=== PATIENT | female | born 1990 | race Caucasian/White ===

== ENCOUNTER 2019-06-21 06:03 | Inpatient (IN) | payer BC ==
[~2019-06-21 06:03] MED LIST: Citric Acid/Sodium Citrate Solution 30 ML Cup PO ONE; Clindamycin Phosphate 900 MG in Sodium Chloride 0.9% 100 ML IV ONE; Gentamicin 500 MG in Sodium Chloride 0.9% 100 ML IV ONE; Lactated Ringers 1,000 ML IV SCH; Oxytocin/Normal Saline 30 UNIT/500 ML BAG IV SCH; Sodium Chloride 0.9% 10 ML Syringe FLUSH PRN; Tranexamic Acid 1,000 MG in Sodium Chloride 0.9% 100 ML IV PRN
[2019-06-21] MEDS: Lactated Ringers 1,000 ML IV SCH ×4 (06:30→20:36)
[2019-06-21] MEDS ORDERED: Oxytocin/Normal Saline 60 UNIT/1,000 ML BAG ONE (06:59)
[2019-06-21] MEDS ORDERED: Carboprost Tromethamine 250 MCG/1 ML Amp IM PRN (10:01)
[2019-06-21] MEDS ORDERED: Naloxone 2 MG/2 ML Syringe IVPUSH PRN (10:01)
[2019-06-21] MEDS ORDERED: Acetaminophen 325 MG Tab PO PRN (10:01)
[2019-06-21] MEDS ORDERED: diphenhydrAMINE 50 MG/ML SDV IVPUSH PRN (10:01)
[2019-06-21] MEDS ORDERED: Tranexamic Acid 1,000 MG in Sodium Chloride 0.9% 100 ML IV PRN (10:01)
[2019-06-21] MEDS ORDERED: Misoprostol 400 MCG (4 X 100 MCG TAB) RECTAL PRN (10:01)
[2019-06-21] MEDS ORDERED: Ondansetron 4 MG/2 ML SDV IVPUSH PRN (10:01)
[2019-06-21] MEDS ORDERED: Methylergonovine 0.2 MG/1 ML Amp IM PRN (10:01)
[2019-06-21] MEDS ORDERED: ePHEDrine 50 MG/ML SDV IVPUSH PRN (10:01)
[2019-06-21] MEDS ORDERED: Acetaminophen/oxyCODONE 325-5 MG Tab PO PRN (10:01)
[2019-06-21] MEDS ORDERED: Ketorolac 30 MG/ML SDV IVPUSH SCH (10:30)
--- NOTE | 2019-06-21 11:08 | OR ---
DATE: 06/21/2019 PROCEDURE PERFORMED: Repeat low transverse section. SURGEON: Merissa Champagne MD PLASTERER MAINTENANCE: Ynes Child MD PRE PROCEDURE DIAGNOSES: 1. 39 and 0/7 weeks intrauterine based on 14 weeks ultrasound. 2. 4, para 2-0-1-2. 3. Hypothyroidism of . 4. History of gestational diabetes in past 2 pregnancies, but not this . 5. History of delivery of macrosomic infant. 6. Anemia of . 7. Blood type A positive, rubella immune, group B Strep positive, resistant to clindamycin. POSTPROCEDURE DIAGNOSES: 1. 39 and 0/7 weeks intrauterine based on 14 weeks ultrasound. 2. 4, para 2-0-1-2. 3. Hypothyroidism of . 4. History of gestational diabetes in past 2 pregnancies, but not this . 5. History of delivery of macrosomic infant. 6. Anemia of . 7. Blood type A positive, rubella immune, group B Strep positive, resistant to clindamycin. 8. Thin lower uterine segment. 9. Delivery of viable male . FINDINGS: As below. BRIEF HISTORY: A 29-year-old female with the above-listed diagnoses, brought into the hospital today for elective repeat section at term. Please see admission history and physical for full details. There were no new problems or concerns noted on day of surgery. Consent discussed with the patient and her at her preoperative appointment as well as upon arrival today. The indications, risks, benefits, and alternatives of repeat low transverse section including but not limited to injury of any large blood vessels, nerves, veins, any adjacent internal organs or adjacent structures, fallopian tubes, ovaries, intestines, bladder, even potential injury to the baby potential for complications requiring transfer to a larger facility for either her or the baby and remote risk of , potential for blood transfusion as well as its inherent risks of potential contraction of blood borne disease such as HIV or hepatitis, potential for transfusion reaction, fluid load, and other complications. Their questions were answered and appropriate consent forms were signed and in the chart. DETAILS: The patient was brought to the operating room and spinal anesthesia obtained. She was laid in the dorsal supine position with leftward tilt and Giron indwelling catheter was placed. She was prepped and draped in the usual fashion and Pfannenstiel skin incision made at 8:08 a.m. cranial to the location of her prior Pfannenstiel scar, which was right over the pubic bone. This was carried down through the subcutaneous tissues using blunt dissection and cautery. Fascia was incised in the midline with cautery and extended bilaterally with cautery. Superior fascial edge then grasped with Amy's, tented up, and rectus muscles dissected off bluntly and with cautery. Scar tissue was noted to be rather dense and thick. Inferior fascial edge also grasped with Amy's, tented up, and rectus muscles dissected off with cautery as well with adequate visualization. The peritoneal cavity was attempted to be entered, but scar tissue there was also very thick, so careful cautery was used to break through the initial layer of scar and then hemostats used to continue with blunt dissection until I was able to get into the peritoneal cavity and we had clear fluid noted. Then, with very careful dissection and finger palpation, dissected through the peritoneal scar tissue and then inspected the uterus. Bladder was scarred up onto the uterus itself covering the prior hysterotomy site. Silvio retractor was placed and bladder flap created and the lower uterine scar could be visualized but was very low and adjacent to the uterus, therefore hysterotomy site was done about 1.5 cm cranial to the prior uterine incision and this was performed with scalpel. Amniotic fluid sac then noted and attempted to increase hysterotomy site by Chambers method, but some difficulty on the lateral edges, so slight snip with bandage scissors was performed. Amniotic fluid sac then ruptured and copious amounts of clear fluid returned. Baby's head was then brought up to the hysterotomy site and with concomitant fundal pressure, baby delivered at 8:20 a.m. Nose and mouth were suctioned. Three- vessel umbilical cord was doubly clamped and cut. Baby taken to the warmer for further evaluation. Cord blood sample was then obtained and placenta delivered by gentle cord traction and concomitant uterine massage. Uterus then cleared of all clots and debris with dry lap sponge and hysterotomy site closed with a running lock suture of 0 Vicryl in the usual fashion. Excellent hemostasis was noted, so a 2nd layer was not performed. Silvio retractor then removed. Paracolic gutters were cleared of all clots and debris. Hysterotomy site was reinspected and this layer irrigated and remained with excellent appearance. The peritoneal layer was then closed with a running stitch of 0 Vicryl remnant suture and subcutaneous tissues irrigated again and fascia closed with a running stitch of 0 looped PDS with good reapproximation. The subcutaneous tissues were then irrigated, cleared of any clots and debris and superficial bleeders controlled with cautery. Skin was then closed with a running suture of 4-0 Monocryl and reinforced with Mastisol and Steri-Strips. Procedure completed at 8:55 a.m. FINDINGS: Dense scar tissue and thin lower uterine segment. The patient does not plan future pregnancies, but if she were to have further pregnancies, recommend delivery at 38 or possibly even 37 weeks gestation. Viable male , score of 9 and 9. Weight 9 pounds 0 ounces, 4090 grams.. FLUIDS: 1500 mL of crystalloids, 300 mL with Pitocin. URINE OUTPUT: 150 mL clear. ESTIMATED BLOOD LOSS: 400 mL. COMPLICATIONS: none. [facility] /[id number]
[2019-06-21] MEDS: Ketorolac 30 MG/ML SDV IVPUSH SCH ×2 (14:44→20:34)
[2019-06-21] MEDS: Simethicone 80 MG Tab.Chew PO SCH ×3 (14:47→20:34)
[2019-06-22] MEDS: Ketorolac 30 MG/ML SDV IVPUSH SCH (02:48)
[2019-06-22] MEDS: Simethicone 80 MG Tab.Chew PO SCH ×5 (08:10→21:07)
[2019-06-22] MEDS: Docusate Sodium 100 MG Cap PO PRN ×2 (08:10→21:07)
[2019-06-22] MEDS: Ferrous Sulfate 325 MG Tab PO SCH (08:10)
[2019-06-22] MEDS ORDERED: Prenatal Multivitamin with Calcium/Folic Acid/Iron Tab PO SCH ×2 (09:00→17:00)
[2019-06-22] MEDS: Ibuprofen 800 MG Tab PO PRN ×2 (11:17→21:07)
[2019-06-22] MEDS ORDERED: fentaNYL 100 MCG/2 ML SDV IV ONE (11:22)
[2019-06-22] MEDS ORDERED: Sodium Bicarbonate 4.2% 2.5 MEQ/5 ML SDV ONE (11:22)
[2019-06-22] MEDS ORDERED: Dexamethasone 4 MG/ML SDV IV ONE (11:22)
[2019-06-22] MEDS ORDERED: Ketorolac 30 MG/ML SDV IVPUSH ONE (11:22)
[2019-06-22] MEDS ORDERED: diphenhydrAMINE 50 MG/ML SDV IV ONE (11:22)
[2019-06-22] MEDS ORDERED: Ondansetron 4 MG/2 ML SDV IV ONE (11:22)
[2019-06-22] MEDS ORDERED: Oxytocin/Normal Saline 30 UNIT/500 ML BAG IV ONE (11:23)
--- NOTE | 2019-06-22 11:48 | PN ---
DATE: 06/22/2019 SUBJECTIVE: Postoperative day #1, status post repeat low transverse section performed without complications. The patient is doing well. No chest pain. No shortness of breath. She has ambulated a couple of times, but not very much yet. Denies passing any flatus, voiding without difficulty, tolerating a regular diet, and breast-feeding, feeling that overall she is doing well postoperatively and her pain is well controlled. OBJECTIVE: General: The patient is pleasant, resting in her hospital bed. Vital Signs: Temperature is 98.7, pulse 88, blood pressure 108/65, respiratory rate of 16, O2 saturations 98% on room air. Heart: Regular without murmur. Lungs: Clear to auscultation bilaterally. Abdomen: Distended, soft, nontender. Hypoactive bowel sounds are present. Incision site dressing was removed. The incision is clean, dry, and intact. There was very minimal bleeding noted on the dressing. Extremities: She has trace edema bilaterally. YOJANA hose are on. No warmth to touch. Negative Homans sign. LABORATORY DATA: Hemoglobin is down to 9.9 and platelets down to 149. ASSESSMENT: 1. Status post repeat low transverse section at 39 weeks. 2. 4, now para 3-0-1-3. 3. Hypothyroidism of . 4. History of gestational diabetes, prior . 5. Delivery of a macrosomic infant. 6. Anemia of and acute blood loss. 7. Blood type A positive, rubella immune, group B strep was positive and resistant to clindamycin. 8. Thrombocytopenia. 9. mother. PLAN: Continue normal postoperative cares. We will be encouraging her to ambulate and make sure she is getting some simethicone to help pass the gas. We will be anticipating discharge home tomorrow as long as things go well because of the thrombocytopenia and anemia greater than expected for an EBL of 400 at delivery. We will recheck a CBC tomorrow and monitor closely for any complications. The patient's questions have been answered. [facility] /[id number]
[2019-06-22] MEDS: Acetaminophen/oxyCODONE 325-5 MG Tab PO PRN ×2 (15:45→21:11)
[2019-06-23] MEDS: Docusate Sodium 100 MG Cap PO PRN (07:41)
[2019-06-23] MEDS: Ferrous Sulfate 325 MG Tab PO SCH (07:41)
[2019-06-23] MEDS: Ibuprofen 800 MG Tab PO PRN (07:42)
[2019-06-23] MEDS: Simethicone 80 MG Tab.Chew PO SCH (09:13)
--- NOTE | 2019-06-24 02:48 | DISCH ---
ADMITTING DIAGNOSES: 1. A 39-0/7 weeks' intrauterine based on 14-week ultrasound. 2. 4, para 2-0-1-2. 3. History of x2. 4. Hypothyroidism in . 5. History of gestational diabetes, prior . 6. History of delivery of macrosomic . 7. Anemia of . 8. Blood type O positive, rubella immune, and group B Strep positive, resistant to clindamycin. 9. Penicillin allergy. DISCHARGE DIAGNOSES: 1. A 39-0/7 weeks' intrauterine based on 14-week ultrasound. 2. 4, now para 3-0-1-3. 3. History of x2. 4. Hypothyroidism in . 5. History of gestational diabetes, prior . 6. History of delivery of macrosomic infant. 7. Anemia of . 8. Blood type O positive, rubella immune, and group B Strep positive, resistant to clindamycin. 9. Penicillin allergy. 10.Status post uncomplicated repeat section. 11.Anemia of blood loss. 12.Thrombocytopenia, resolved. 13. mother. BRIEF HISTORY: A 29-year-old female with the above-listed diagnoses admitted to the hospital for planned elective repeat section which was performed without complications or difficulty. See H and P as well as operative report for full details. I did go higher than her previous skin and uterine incisions based on my clinical impression at that time and patient has been happy with that and reporting that it has been easier to get up and move around at this time as compared to her prior deliveries. After delivery, she continued to do well. No respiratory symptoms. No chest pain. She has now had a bowel movement this morning. She has been voiding without difficulty, ambulating, tolerating a regular diet. is complicated by baby's lip tie, so she has been pumping and has more than adequate breast milk supply and feels ready to go home today. DISCHARGE CONDITION: Good. PHYSICAL EXAMINATION: Vital Signs: Temperature is 99.0, pulse 86, blood pressure 119/67, respiratory rate of 16, and O2 saturation is 98% on room air. Heart: Regular without murmur. Lungs: Clear to auscultation bilaterally. Abdomen: Less distended than the day before. Bowel sounds are normoactive. Incision site is clean, dry, and intact. Expected amount of incisional tenderness, but no other tenderness noted. Extremities: 1+ edema bilaterally. No edema or erythema noted. LABORATORY DATA: Admission hemoglobin of 12.3, discharge is 11.0. Admission platelets of 157 and discharge back up to 157. They had previously dipped down only to 149. DISPOSITION: Home with family. MEDICATIONS: 1. Percocet 5/325 one to two tablets every 4 to 6 hours as needed for pain, dispense 20, no refills. 2. Colace 100 mg twice daily as needed for constipation. 3. Ibuprofen 800 mg every 8 hours as needed for pain. 4. Levothyroxine 150 mcg, continue 1 daily. 5. vitamin, continue 1 daily. FOLLOWUP: She will take her baby into the office on Thursday for first check with Dr. Silva and she can be checked at that time as well should any problems or concerns arise. Otherwise, anticipate postoperative exam between days [address] Silva sees the baby for 2-week well baby check. [facility] /[id number]
== END 2019-06-23 13:15 | disposition home or self-care (01) | DRG 540 ==
LOC: DL.OB 06:03 → OBSVTOIN 08:19 → DL.OB 08:19
PROVIDERS: ADMIT Family Medicine; ATTEND Family Medicine
PROC: 10D00Z1 Extraction of Products of Conception, Low, Open Approach (ICD-10-PCS; principal; 2019-06-21)
DX: O34.211 Maternal care for low transverse scar from previous cesarean delivery (principal); O99.02 Anemia complicating childbirth; D62 Acute posthemorrhagic anemia; O99.12 Other diseases of the blood and blood-forming organs and certain disorders involving the immune mechanism complicating childbirth; D69.6 Thrombocytopenia, unspecified; O99.284 Endocrine, nutritional and metabolic diseases complicating childbirth; E03.9 Hypothyroidism, unspecified; Z3A.39 39 weeks gestation of pregnancy; Z37.0 Single live birth; Z88.0 Allergy status to penicillin; Z28.82 Immunization not carried out because of caregiver refusal
CPT/HCPCS: 36415; 59025; 85025; 85027; 86850; 86900; 86901; 94010; A9270-GY; J1100; J1200; J1580; J1885; J2405; J2590; J3010; J3490; J7050; J7120